=== PATIENT | male | born 1950 | race Caucasian/White ===

== ENCOUNTER → 2019-05-23 | Outpatient (CLI) | payer MEDICARE ==
--- NOTE | 2019-05-23 14:36 | XCELERA REPORT ---
[address] [facility] [address] Lower Extremity Venous Evaluation Procedure: Color flow and duplex imaging of the veins of the right lower extremity as well as the left Common Femoral vein. Right Sided Venous Evaluation Normal vessel filling wall to wall, compression and augmentation as well as Colour flow down to the infrageniculate veins. Left Sided Venous Evaluation The left common femoral vein is fully compressible. Spontaneous and phasic flow is present in the left common femoral vein. Interpretation Summary No duplex evidence of DVT or obstruction in the right lower extremity nor in the left Common Femoral vein. Name: RANDA DUMONT Age: 68 yrs Gender: Male : 1950 Patient Status: Outpatient Patient Location: Study Date: 05/23/2019 02:15 PM Reason For Study: RLE EDEMA Ordering Physician: SIDDHARTH RODRIGES Performed By: Ashly Donaldson : SIDDHARTH RODRIGES > Sagar Gandhi
== END ==
LOC: SP 13:31
PROVIDERS: ATTEND Family Medicine
DX: R60.0 Localized edema (principal)
CPT/HCPCS: 93971